=== PATIENT | female | born 1985 | race Caucasian/White ===

== ENCOUNTER → 2019-09-27 | Outpatient (CLI) | payer OTHER | END | disposition home or self-care (01) | LOC: PRENATAL 08:30 | PROVIDERS: ATTEND Obstetrics & Gynecology Obstetrics | DX: O35.0XX1 Maternal care for (suspected) central nervous system malformation in fetus, fetus 1 (principal); O35.3XX1 Maternal care for (suspected) damage to fetus from viral disease in mother, fetus 1; O34.211 Maternal care for low transverse scar from previous cesarean delivery; O28.3 Abnormal ultrasonic finding on antenatal screening of mother; O09.523 Supervision of elderly multigravida, third trimester ==